=== PATIENT | male | born 1930 | race Caucasian/White ===

== ENCOUNTER 2016-09-07 05:41 | Outpatient (CLI) | payer MEDICARE ==
[~2016-09-07] VITALS: Ht 172.7 cm; Wt 93.0 kg
[~2016-09-07 05:41] MED LIST: ACHD5005 PO; AMLO1CAP31 PO; AMLO5TAB2 PO; ASCO1TAB17 PO; BETA1TAB15 PO; CALC-656 PO; CALC-706 PO; CHOL200049 PO; CYAN500T2 PO; DEXT1TAB3 PO; DOXA4TAB2 PO; HYDR-757 PO; IPRA3AMP11 INH; LEVO500T69 PO; LISI-556 PO; MELA300T PO; NAPR550T PO; OMEG1CAP74 PO; OMEP-10 PO; OXYC-12 PO; PRD20T PO; TRAM50TA2 PO
[2016-09-07] MEDS ORDERED: FLUT1DIS26 IH (10:48)
[2016-09-07] MEDS ORDERED: MELA1TAB15 PO (10:48)
[2016-09-07] MEDS ORDERED: OXYC-201 PO (10:48)
== END 2016-09-07 10:50 ==
LOC: PREOP 05:41
PROVIDERS: ATTEND Surgery Pediatric Surgery
DX: Z01.818 Encounter for other preprocedural examination (principal); K21.9 Gastro-esophageal reflux disease without esophagitis

== ENCOUNTER 2016-09-09 11:01 | Day surgery (SDC) | payer MEDICARE ==
[~2016-09-09] VITALS: Ht 172.7 cm; Wt 93.0 kg
[~2016-09-09 11:01] MED LIST changes: +FLUT1DIS26 IH; +MELA1TAB15 PO; +OXYC-201 PO
[2016-09-09] MEDS ORDERED: NS IV 500 ML 500 ML ONE (11:08)
[2016-09-09] MEDS ORDERED: LIDOCAINE JELLY 2% (XYLOCAINE) 5 ML TUBE ONE (11:24)
[2016-09-09] MEDS ORDERED: fentaNYL INJECTION 100 MCG/2 ML AMP ONE (11:25)
[2016-09-09] MEDS ORDERED: MIDAZOLAM 2 MG/2 ML (VERSED) VIAL ONE ×4 (11:25)
[2016-09-09] MEDS ORDERED: HURRICAINE EXT TUBE (BENZOCAINE) ONE (11:25)
[2016-09-09] MEDS ORDERED: MIDAZOLAM 2 MG/2 ML (VERSED) VIAL INJ ONE (11:25)
[2016-09-09 11:38] VITALS: BP 139/87
--- NOTE | 2016-09-09 11:44 | Conscious Sedation/ASA ---
Conscious Sedation Pre-Proced Time Reviewed: 11:40 ASA Class: 2 Airway Mallampati Classification: ([place] appropriate class) I. II. III, IV Lungs Heart ASA score ASA 1: a normal healthy patient ASA 2: a patient with a mild systemic disease (mid diabetes, controlled hypertension, obesity ASA 3: a patient with a severe systemic disease that limits activity (angina , COPD, prior Myocardial infarction) ASA 4: a patient with an incapacitating disease that is a constant threat to life (CHF, renal failure) ASA 5: a moribund patient not expected to survive 24 hrs. (ruptured aneurysm) ASA 6: a declared brain patient whose organs are being harvested. For emergent operations, add the letter E after the classification Grade 2 Sedation Plan: Analgesia, Amnesia, Plan communicated to team members, Discussed options with patient/fam, Discussed risks with patient/fam Note The patient is an appropriate candidate to undergo the planned procedure, sedation, and anesthesia. The patient immediately re-assessed prior to indication. NUSRAT DUGAN MD Sep 09, 2016 11:44 am
[2016-09-09] MEDS ORDERED: HYDROcodone/APAP 5 MG/325 MG (LORTAB) TAB PO PRN (11:45)
[2016-09-09] MEDS ORDERED: LIDOCAINE JELLY 2% (XYLOCAINE) 5 ML TUBE MM PRN (11:45)
[2016-09-09] MEDS ORDERED: ACETAMINOPHEN 325 MG TABLET/CAPLET (TYLENOL) PO PRN (11:45)
[2016-09-09] MEDS ORDERED: morphine INJ 10 MG/ML 1ML (SYR OR VIAL) IV PRN (11:45)
[2016-09-09] MEDS ORDERED: ONDANSETRON 4 MG/2 ML (SDV) Z0FRAN IV PRN (11:45)
[2016-09-09] MEDS ORDERED: FLUMAZENIL (ROMAZICON) 0.1 MG/ML 5 ML VIAL INJ PRN (11:45)
[2016-09-09] MEDS ORDERED: HURRICAINE EXT TUBE (BENZOCAINE) XX PRN (11:45)
[2016-09-09] MEDS ORDERED: NALOXONE 0.4 MG/ML 1 ML (NARCAN) VIAL IVP PRN (11:45)
--- NOTE | 2016-09-09 11:45 | Progress Note-Pre Operative ---
Pre-Operative Progress Note H&P Reviewed The H&P was reviewed, patient examined and no changes noted. Date H&P Reviewed: Sep 09, 2016 Time H&P Reviewed: 11:40 Pre-Operative Diagnosis: GERD NUSRAT DUGAN MD Sep 09, 2016 11:45 am
[2016-09-09] MEDS: fentaNYL INJECTION 100 MCG/2 ML AMP IVP PRN ×2 (11:47→11:49)
[2016-09-09] MEDS: MIDAZOLAM 2 MG/2 ML (VERSED) VIAL IVP PRN ×2 (11:48→11:56)
--- NOTE | 2016-09-09 12:10 | Progress Note-Post Operative ---
Post-Operative Progess Note Pre-Operative Diagnosis GERD Post-Operative Diagnosis reflux esophagitis(class B-C), small HH(2cm), mild gastritis. Post-Op Procedure Note Date of Procedure: Sep 09, 2016 Name of Procedure: EGD with bx. Anesthesia Type CS Estimated blood loss (mL): minimal Specimen(s) collected GE jxn. antrum NUSRAT DUGAN MD Sep 09, 2016 12:10 pm
[2016-09-09] MEDS ORDERED: PANT40TA2 PO (12:11)
--- NOTE | 2016-09-09 12:12 | Discharge Inst-Surgical ---
D/C Lap Instructions-KIDO New, Converted, or Re-Newed RX: RX on Chart Follow Up PRN Activity as tolerated High Fiber Diet 25g or more per day Avoid Alcohol, Caffeine, Spicy [place] and Acid foods. Drink 64 fluid oz or more of fluids per day. Symptoms to Report: Fever over 101 degree F, Nausea/Vomiting If any problems/questions: Contact your physician or go to Emergency Room NUSRAT DUGAN MD Sep 09, 2016 12:12 pm
[2016-09-09 12:35] VITALS: BP 142/86
[2016-09-09 13:05] VITALS: BP 139/89
[2016-09-09 13:19] VITALS: BP 139/89
--- NOTE | 2016-09-09 13:34 | OPERATIVE REPORT ---
PROCEDURE PHYSICIAN: NUSRAT DUGAN DATE OF PROCEDURE: 09/09/2016 ATTENDING PHYSICIAN: Dr. Oriana Napier PREOPERATIVE DIAGNOSIS: Gastroesophageal reflux disease. POSTOPERATIVE DIAGNOSES: 1. Reflux esophagitis between class B and C. 2. Small hiatal hernia, approximately 2 cm in size. 3. Mild gastritis. PROCEDURE: EGD with biopsies. SURGEON: Dr. Dugan. ANESTHESIA: Conscious sedation. ESTIMATED BLOOD LOSS: Minimal. FINDINGS: 1. Reflux esophagitis between class B and C. 2. Small hiatal hernia, approximately 2 cm in size. 3. There was moderate severity gastritis. 4. No ulcers or any neoplasms. 5. The pylorus and duodenum appeared normal. DISPOSITION: The patient tolerated the procedure well. BRIEF HISTORY: Mr. Andrez Young is an 86-year-old male referred over to us for increasing reflux and regurgitation. He has had issues of heartburn for many years. However, this has gradually become worse. He has taken [id number] Prilosec, which initially helped however, became less effective over time. He also has had some issues with nausea and vomiting as well. He reports that he does drink 2 to 3 drinks per night and does take in greasy, fried, spicy as well as acidic foods; however not on a daily basis. PROCEDURE: The patient was brought to the endoscopy suite, laid in the left lateral decubitus position with the head slightly elevated. After adequate IV pain and sedative medications and conscious sedation anesthesia, the mouthpiece was applied. The endoscope was then placed in the mouth, visualizing the pharynx and hypopharyngeal region. Vocal cords, epiglottis and vallecula identified and appeared to be normal. The endoscope was then gently intubated the esophageal opening and the esophagus insufflated. The endoscope was then advanced through the first, second, and 3rd portions of the esophagus. At the level of the GE junction, a reflux esophagitis was identified and significant and classified between class B and C. There were no ulcers or strictures in this region. A biopsy was taken using forceps with visualization of good hemostasis. The endoscope was then advanced into the stomach and endoscope retroflexed visualizing a hiatal hernia which was a small hiatal hernia, approximately 2 cm in size. Mild gastritis was also noted of the stomach. There were no formal ulcers or any neoplasms. There were multiple very small gastric polyps, most likely indicating hyper-acidemia. A biopsy was taken of the stomach antrum, with forceps with visualization of good hemostasis. The endoscope was then advanced through the pylorus and first and second portions of duodenum which appeared normal. The endoscope was slowly withdrawn while taking a second look and suctioning of residual air with no additional findings. The patient tolerated the procedure well. We feel that his reflux type symptoms are most likely due to lifestyle and he needs to proceed with the necessary lifestyle and diet accommodation including smaller, more frequent meals, avoidance of eating at night, as well as head elevation while lying supine. He also needs to moderate alcohol consumption as well as caffeinated beverages. It appears that the Prilosec is ineffective and we will switch him over to Protonix 40 mg daily, again with the necessary lifestyle changes. Job ID: [id number] Dictated Date: 09/09/2016 12:10:32 Engraver [employer] Date: 09/09/2016 13:26:47 / amaris
== END 2016-09-09 13:10 ==
LOC: SDC 11:01
PROVIDERS: ATTEND Surgery Pediatric Surgery
DX: K21.0 Gastro-esophageal reflux disease with esophagitis (principal); K44.9 Diaphragmatic hernia without obstruction or gangrene; K29.70 Gastritis, unspecified, without bleeding

== ENCOUNTER 2016-09-21 08:58 | Outpatient (RCR) | payer MEDICARE ==
[~2016-09-21 08:58] MED LIST changes: +PANT40TA2 PO
== END 2016-09-22 | disposition home or self-care (01) ==
PROVIDERS: ATTEND Orthopaedic Surgery
DX: M54.5 Low back pain (principal)

== ENCOUNTER → 2016-09-28 | Outpatient (CLI) | payer MEDICARE ==
[~2016-09-28] MED LIST changes: +AZIT250T PO
--- OUTSIDE RECORDS SUMMARY | 2016-09-28 08:30 | XMS REPORT | Continuity of Care Document ---
Author Author [facility] Organization [facility] Address Unknown Phone Unavailable Care Team Providers Care Art Appraiser Name Role Phone ELIJAH LA MD PCP Insurance Providers Payer Name Policy Number Subscriber Name Relationship Wps Medicare [id number] Rehana Young Self / Same As Patient Blue Cross [facility] Supp [id number] Rehana Young Self / Same As Patient Advance Directives Directive Response Recorded Date/Time Advance Directives Yes 09/09/16 11:41am Health Care Power of Sticker Hand No 09/09/16 11:41am Organ Donor Yes 09/09/16 11:41am Resuscitation Status Full Code 09/09/16 11:41am Problems No problem information available. Medications Current Home Medications Medication Dose Units Route Directions Days/Qty Instructions Start Date Doxazosin Mesylate 4 Mg 4 Mg Oral Bedtime 04/27/11 Albuterol/Ipratropium 3 Ml 1 Inh Inhalation Twice A Day MAY TAKE UP TO FOUR TIMES A DAY 04/27/11 Amlodipine Besylate (Norvasc 5 Mg) 5 Mg 5 Mg Oral Daily 11/07/14 [place]-3/Dha/Epa/Fish Oil 1,000 Mg 1,000 Mg Oral Daily 11/07/14 Calcium Carbonate/Vitamin D3 1 Each 1 Each Oral Daily 11/07/14 Calcium Carbonate/Mag Oxide/Zn 1 Each 1 Each Oral Daily 11/07/14 Cholecalciferol (Vitamin D3) 2,000 Unit 2,000 Unit Oral Daily Cyanocobalamin 500 Mcg 500 Mcg Oral Daily 11/07/14 Omeprazole 20 Mg 20 Mg Oral Twice A Day as needed for Heartburn Vit A/Vit C/Vit E/Zinc/Copper 1 Each 1 Tab Oral Twice A Day 11/07/14 Lisinopril 5 Mg 5 Mg Oral Daily 11/13/14 Tramadol Hcl 50 Mg 50 Mg Oral Four Times Daily 30 05/19/16 Melatonin/Pyridoxine 1 Each 5 Mg Oral Bedtime 09/07/16 Oxycodone Hcl/Acetaminophen 1 Each 1 Each Oral Every 4HRS as needed for Pain 09/07/16 Fluticasone/Salmeterol 1 Each 1 Each Inhalation Twice A Day 09/07/16 Pantoprazole Sodium 40 Mg 40 Mg Oral Daily 90 09/09/16 Past Home Medications Medication Directions Ordered Status Amlodipine/Benazepril Hcl 1 Each Capsule, 1 Tab Oral Daily 04/27/11 Discontinued Acetaminophen/Hydrocodone Bitart 1 Each Tablet, 1 - 2 Each Oral Every 6 Hours as needed 04/30/12 Discontinued Prednisone 20 Mg Tab, 20 Mg Oral Daily 04/30/12 Discontinued Hydrocodone Bit/Acetaminophen 1 Each Tablet, 1 Ea Oral Every 6 Hours as needed for Mild Pain 11/06/13 Discontinued Dextromethorphan Hbr/Chlor-Mal 1 Tab Tablet, 1 Tab Oral Daily 11/07/14 Discontinued Ascorbic Acid/Bioflavonoids 1 Tab Tablet, 500 Mg Oral Daily 11/07/14 Discontinued Melatonin 300 Mcg Tablet, 250 Mcg Oral Bedtime 11/13/14 Discontinued Oxycodone Hcl/Acetaminophen 1 Each Tablet, 1-2 Each Oral Every 4HRS 11/13/14 Discontinued Naproxen Sodium (Naproxen) 550 Mg Tablet, 550 Mg Oral Twice A Day 05/19/16 Discontinued Social History Social History Problem Response Recorded Date/Time Alcohol Use Regular Use 11/13/2014 8:50am Recreational Drug Use No 11/13/2014 8:50am Recent Foreign Travel No 09/09/2016 11:40am Smoking Status Former Smoker 09/09/2016 11:41am Recent Hopitalizations No 09/09/2016 11:41am Query Response Start Date Stop Date Smoking Status Former Smoker Hospital Discharge Instructions Patient Instructions Physician Instructions New, Converted, or Re-Newed RX: RX on Chart Follow Up PRN Activity as tolerated High Fiber Diet 25g or more per day Avoid Alcohol, Caffeine, Spicy [place] and Acid foods. Drink 64 fluid oz or more of fluids per day. Symptoms to Report: Fever over 101 degree F, Nausea/Vomiting If any problems/questions: Contact your physician or go to Emergency Room Plan of Care Discharge Date 09/09/16 1:10pm Instructions/Education Provided EGD-ESOPHAGOGASTRODUODENOSCOPY Prescriptions See Medication Section Functional Status No functional status results. Allergies, Adverse Reactions, Alerts Allergen Type Severity Reaction Status Last Updated Sulfa (Sulfonamide Antibiotics) ([id number]) Allergy Unknown Active Immunizations No immunization records. Vital Signs Acute Vital Signs Vital Response Date/Time Temperature (Fahrenheit) 97.1 degrees F (97.6 - 99.5) 09/09/2016 1:19pm Temperature (Calculated Celsius) 36.27316 degrees C (36.4 - 37.5) 09/09/2016 1:19pm Temperature Source Tympanic 09/09/2016 1:19pm Pulse Rate (adult) 76 bpm (60 - 90) 09/09/2016 1:19pm Respiratory Rate 18 bpm (12 - 24) 09/09/2016 1:19pm O2 Sat by Pulse Oximetry 91 % (88 - 100) 09/09/2016 1:19pm Blood Pressure 139/89 mm Hg 09/09/2016 1:19pm Blood Pressure Mean 104 mm Hg 09/09/2016 11:38am Pain Numeric Pain Scale 3 09/09/2016 1:19pm Pain Intensity 0 09/09/2016 1:05pm Height (Feet) 5 feet 09/09/2016 11:42am Height (Inches) 8.00 inches 09/09/2016 11:42am Height (Calculated Centimeters) 172.818339 cm 09/09/2016 11:42am Weight (Pounds) 205 pounds 09/09/2016 11:42am Weight (Ounces) 0.0 oz 09/09/2016 11:42am Weight (Calculated Grams) 63876.44 gm 09/09/2016 11:42am Weight (Calculated Kilograms) 92.757434 kilograms 09/09/2016 11:42am Calculated BMI 31.2 09/09/2016 11:42am Results No known relevant diagnostic tests, laboratory data and/or discharge summary. Procedures Procedure Status Date Provider(s) Esophagogastroduodenoscopy (EGD) with dilation Completed 09/09/16 NUSRAT DUGAN MD Encounters Encounter Location Arrival/Admit Date Discharge/Depart Date Attending Provider Departed Surgical Day [facility] 09/09/16 11:01am 09/09/16 1:10pm NUSRAT DUGAN MD Registered Recurring [facility] 09/08/16 10:53am KARLEE JOHNSON DO Departed Clinic [facility] 09/07/16 5:41am 09/07/16 10: 50am NUSRAT DUGAN MD
--- NOTE | 2016-09-28 12:50 | Diagnostic Imaging Report ---
PROCEDURE: CT pelvis without contrast. TECHNIQUE: Multiple contiguous axial images were obtained through the pelvis without the use of intravenous contrast. Sagittal and coronal reformations were performed. INDICATION: Right hip pain for a week. Pubic rami fractures. FINDINGS: There are fractures in the inferior and superior pubic rami with minimal displacement seen. The fracture in the superior pubic rami however extends to the anterior acetabulum and into the right hip joint. There is a tiny bone fragment displaced into the joint measuring 6 mm in size. The fracture results in loss of a portion of the articular surface measuring 6 mm in the anterior-posterior dimension without significant irregularity or loss of congruity of the joint surface. There is a hematoma along the obturator internus area secondary to the fracture with associated early heterotopic ossification. Both fractures demonstrate element of comminution with small fracture fragments at the fracture site seen. The right femoral head and neck are intact. The left pubic rami and femoral head and neck are intact. The SI joints demonstrate degenerative changes. There are bilateral insufficiency fractures in the sacral ala seen. Degenerative changes of the lower lumbar spine visualized portions seen with a grade 1 spondylosis of L5 over S1 and bilateral L5 pars defects. IMPRESSION: 1. There is an intra-articular fracture involving the right hip in the anterior acetabulum extending from the medial aspect of the right superior pubic ramus fracture. There is a 6 mm bone fragment seen within the right hip joint. 2. There is also a nondisplaced minimally comminuted inferior right pubic ramus fracture. 3. Bilateral sacral ala insufficiency fractures. 4. 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 Report was faxed to [facility] office of Dr. Maher by marilyn at 12:49 pm. Dictated by: Dictated on workstation # [id number]
== END ==
LOC: RAD 08:24
PROVIDERS: ATTEND Orthopaedic Surgery
DX: S32.511A Fracture of superior rim of right pubis, initial encounter for closed fracture (principal); S32.10XA Unspecified fracture of sacrum, initial encounter for closed fracture; M43.07 Spondylolysis, lumbosacral region; X58.XXXA Exposure to other specified factors, initial encounter; Y99.8 Other external cause status
CPT/HCPCS: 72192

== ENCOUNTER 2016-10-23 12:52 | Emergency (ER) | payer MEDICARE ==
[~2016-10-23] VITALS: Ht 175.3 cm; Wt 90.7 kg
[~2016-10-23 12:52] MED LIST changes: -AZIT250T PO
--- OUTSIDE RECORDS SUMMARY | 2016-10-23 12:59 | XMS REPORT | Continuity of Care Document ---
Author Author [facility] Organization [facility] Address Unknown Phone Unavailable Care Team Providers Care Refrigerator Mover Name Role Phone ELIJAH LA MD PCP Insurance Providers Payer Name Policy Number Subscriber Name Relationship Wps Medicare [id number] Rehana Young Self / Same As Patient Blue Cross [facility] Supp [id number] Rehana Young Self / Same As Patient Advance Directives Directive Response Recorded Date/Time Advance Directives Yes 09/09/16 11:41am Health Care Power of Brim Edge Trimmer No 09/09/16 11:41am Organ Donor Yes 09/09/16 [...] 5 Mg 5 Mg Oral Daily 11/07/14 [place]-3/Dha/Epa/Fish Oil 1,000 Mg 1,000 Mg Oral Daily [...] more per day Avoid Alcohol, Caffeine, Spicy [place] and Acid foods. Drink 64 fluid oz [...] Reaction Status Last Updated Sulfa (Sulfonamide Antibiotics) ([id number]) Allergy Unknown Active Immunizations No immunization records. Vital Signs Acute Vital Signs Vital Response Date/Time Temperature (Fahrenheit) 97.1 degrees F (97.6 - 99.5) 09/09/2016 1:19pm Temperature (Calculated Celsius) 36.77351 degrees C (36.4 - 37.5) 09/09/2016 1:19pm [...] 8.00 inches 09/09/2016 11:42am Height (Calculated Centimeters) 172.457272 cm 09/09/2016 11:42am Weight (Pounds) 205 pounds 09/09/2016 11:42am Weight (Ounces) 0.0 oz 09/09/2016 11:42am Weight (Calculated Grams) 35836.44 gm 09/09/2016 11:42am Weight (Calculated Kilograms) 92.085300 kilograms 09/09/2016 11:42am Calculated BMI 31.2 09/09/2016 11:42am Results No known relevant diagnostic tests, laboratory data and/or discharge summary. Procedures Procedure Status Date Provider(s) Esophagogastroduodenoscopy (EGD) with dilation Completed 09/09/16 NUSRAT DUGAN MD Encounters Encounter Location Arrival/Admit Date Discharge/Depart Date Attending Provider Departed [facility] Day [facility] 09/09/16 11:01am 09/09/16 1:10pm NUSRAT DUGAN MD Registered Recurring [facility] 09/08/16 10:53am KARLEE JOHNSON DO Departed Clinic [facility] 09/07/16 5:41am 09/07/16 10: 50am NUSRAT DUGAN MD
--- NOTE | 2016-10-23 13:20 | ED Abdominal Pain ---
General Stated Complaint: R SIDE SHOULDER PAIN Source of Information: Patient, Family Exam Limitations: No Limitations History of Present Illness Time Seen By Provider: 13:24 Initial Comments This 86-year-old male presents with a history of shoulder knee hip and low back pain. The patient has had multiple fractures without falls in the past. In addition the patient was noted to have a fever here in the emergency department. He's had no productive cough, shortness of breath, nausea vomiting diarrhea, dysuria or frequency, hematuria, red or swollen extremity, headache or stiff neck. Allergies and Home Medications Allergies Coded Allergies: Sulfa (Sulfonamide Antibiotics) (Verified Allergy, Unknown, 09/07/16) Home Medications Albuterol/Ipratropium 3 Ml Nebu 1 INH INH BID (Reported) MAY TAKE UP TO FOUR TIMES A DAY Amlodipine Besylate 5 Mg Tablet 5 MG PO DAILY (Reported) Calcium Carbonate/Mag Oxide/Zn 1 Each Tablet 1 EACH PO DAILY (Reported) Calcium Carbonate/Vitamin D3 1 Each Tablet 1 EACH PO DAILY (Reported) Cholecalciferol (Vitamin D3) 2,000 Unit Tablet 2,000 UNIT PO DAILY (Reported) Cyanocobalamin 500 Mcg Tablet 500 MCG PO DAILY (Reported) Doxazosin Mesylate 4 Mg Tablet 4 MG PO HS (Reported) Fluticasone/Salmeterol 1 Each Blst.w.dev 1 EACH IH BID (Reported) Lisinopril 5 Mg Tablet 5 MG PO DAILY (Reported) Melatonin/Pyridoxine 1 Each Tablet 5 MG PO HS (Reported) [place]-3/Dha/Epa/Fish Oil 1,000 Mg Capsule 1,000 MG PO DAILY (Reported) Omeprazole 20 Mg Capsule.dr 20 MG PO BID PRN PRN HEARTBURN (Reported) Oxycodone HCl/Acetaminophen 1 Each Tablet 1 EACH PO Q4H PRN PRN PAIN (Reported) Pantoprazole Sodium 40 Mg Tablet.dr #90 40 MG PO DAILY Prescribed by: NUSRAT DUGAN on 09/09/16 1211 Tramadol HCl 50 Mg Tablet #30 50 MG PO QID Prescribed by: BRENT GARCIA on 05/19/16 1117 Vit A/Vit C/Vit E/Zinc/Copper 1 Each Tablet 1 TAB PO BID (Reported) Review of Systems Constitutional: No chills, fever EENTM: No Blurred Vision, No Ear Pain Respiratory: Denies Cough, Denies Shortness of Air Cardiovascular: Denies Chest Pain Gastrointestinal: Denies Abdominal Pain, Denies Diarrhea, Denies Vomiting Genitourinary: Denies Burning, Denies Frequency Musculoskeletal: back pain joint pain Skin: No rash Psychiatric/Neurological: No Symptoms Reported Endocrine: No Symptoms Reported Hematologic/Lymphatic: No Symptoms Reported Past Srwuqyh-Cxutlu-Hhnrrj Hx Patient Social History Recent Foreign Travel: No Contact w/Someone Who Travel: No Recent Hopitalizations: No Immunizations Up To Date Date of Pneumonia Vaccine: Aug 21, 2011 Date of Influenza Vaccine: May 21, 2016 Seasonal Allergies Seasonal Allergies: No Surgeries HX Surgeries: Yes (RIGHT KNEE SCOPE, BILAT ING HERNIA, umb hernia, RIGHT SHOULDER X2, ) Respiratory Hx Respiratory Disorders: Yes Respiratory Disorders: Sleep Apnea, COPD Cardiovascular Hx Cardiac Disorders: Yes Cardiac Disorders: Hypertension Neurological Hx Neurological Disorders: No Reproductive System Hx Reproductive Disorders: No Genitourinary Hx Genitourinary Disorders: Yes (FREQUENCY, PROSTATE CA) Gastrointestinal Hx Gastrointestinal Disorders: Yes Gastrointestinal Disorders: Gastroesophageal Reflux Musculoskeletal Hx Musculoskeletal 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) Musculoskeletal Disorders: Arthritis Endocrine Hx Endocrine Disorders: No HEENT HX ENT Disorders: Yes (GLASSES) 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 Hearing Impairment: Hard of Hearing Cancer Hx Cancer: Yes Cancer: Prostate Psychosocial Hx Psychiatric Problems: No Integumentary HX Skin/Integumentary Disorder: No Blood Transfusions Hx Blood Disorders: No Reviewed Nursing Assessment Reviewed/Agree w Nursing PMH: Yes Physical Exam Vital Signs VS - Last 72 Hours, by Label 10/23/16 10/23/16 13:23 13:38 Temp 100.0 100.0 Pulse 95 B/P 136/80 Pulse Ox 94 O2 Delivery Room Air Capillary Refill : General Appearance: WD/WN mild distress HEENT: normal ENT inspection Neck: non-tender full range of motion Respiratory: chest non-tender lungs clear Cardiovascular: regular rate, rhythm Gastrointestinal: normal bowel sounds non tender soft Extremities: other (there is limited range of motion in most of the patient's joints due to his osteoporosis and degenerative arthritis.) Back: vertebral tenderness (over the lumbar region) Skin: normal color warm/dry Progress/Results/Core Measures Results/Orders Lab Results Laboratory Tests Test 10/23/16 13:55 Range/Units Alanine Aminotransferase (ALT/SGPT) 12 0-55 U/L Albumin 3.7 3.2-4.5 G/DL Alkaline Phosphatase 83 40-136 U/L Anion Gap 8 5-14 MMOL/L Aspartate Amino Transf (AST/SGOT) 10 5-34 U/L BUN/Creatinine Ratio 17 Basophils # (Auto) 0.0 0.0-0.1 10^3/uL Basophils (%) (Auto) 0 0-10 % Blood Urea Nitrogen 15 7-18 MG/DL Calcium Level 8.8 8.5-10.1 MG/DL Carbon Dioxide Level 24 21-32 MMOL/L Chloride Level 106 98-107 MMOL/L Creatinine 0.86 0.60-1.30 MG/DL Eosinophils # (Auto) 0.1 0.0-0.3 10^3/uL Eosinophils (%) (Auto) 1 0-10 % Estimat Glomerular Filtration Rate > 60 Glucose Level 103 70-105 MG/DL Hematocrit 39 L 40-54 % Hemoglobin 13.1 L 13.3-17.7 G/DL Lactic Acid Level 0.73 0.50-2.00 MMOL/L Lymphocytes # (Auto) 1.8 1.0-4.0 X 10^3 Lymphocytes (%) (Auto) 19 12-44 % Mean Corpuscular Hemoglobin 29 25-34 PG Mean Corpuscular Hemoglobin Concent 34 32-36 G/DL Mean Corpuscular Volume 85 80-99 FL Mean Platelet Volume 9.1 7.4-10.4 FL Monocytes # (Auto) 1.1 H 0.0-1.0 X 10^3 Monocytes (%) (Auto) 11 0-12 % Neutrophils # (Auto) 6.4 1.8-7.8 X 10^3 Neutrophils (%) (Auto) 68 42-75 % Platelet Count 217 130-400 10^3/uL Potassium Level 4.0 3.6-5.0 MMOL/L Red Blood Count 4.53 4.35-5.85 10^6/uL Red Cell Distribution Width 16.2 H 10.0-14.5 % Sodium Level 138 135-145 MMOL/L Total Bilirubin 0.5 0.1-1.0 MG/DL Total Protein 6.2 L 6.4-8.2 G/DL Urine Bacteria NEGATIVE /HPF Urine Bilirubin NEGATIVE NEGATIVE Urine Casts NONE /LPF Urine Clarity CLEAR Urine Color YELLOW Urine Crystals NONE /LPF Urine Culture Indicated NO Urine Glucose (UA) NEGATIVE NEGATIVE Urine Ketones NEGATIVE NEGATIVE Urine Leukocyte Esterase NEGATIVE NEGATIVE Urine Mucus NEGATIVE /LPF Urine Nitrite NEGATIVE NEGATIVE Urine Protein NEGATIVE NEGATIVE Urine RBC 0-2 /HPF Urine RBC (Auto) 2+ H NEGATIVE Urine Specific [place] 1.020 1.016-1.022 Urine Squamous Epithelial Cells NONE /HPF Urine Urobilinogen NORMAL NORMAL MG/DL Urine WBC RARE /HPF Urine pH 6 5-9 White Blood Count 9.4 4.3-11.0 10^3/uL My Orders Orders-JASE NEWMAN MD Clavicle, Right (10/23/16 13:16) Shoulder, Right, 2 Views (10/23/16 13:16) Knee, 3 Views, Bilateral (10/23/16 13:16) Lumbar Spine - 2-3 Views (10/23/16 13:16) Pelvis (10/23/16 13:16) Fentanyl Injection (Sublimaze Injection (10/23/16 13:30) Chest Pa/Lat (2 View) (10/23/16 13:20) Blood Culture (10/23/16 13:20) Cbc With Automated Diff (10/23/16 13:20) Comprehensive Metabolic Panel (10/23/16 13:20) Ua Culture If Indicated (10/23/16 13:20) Lactic Acid Analyzer (10/23/16 13:20) Medications Given in ED Current Medications Medications Dose Ordered Sig/Chayo Route Start Time Stop Time Status Last Admin Dose Admin Fentanyl Citrate 100 mcg Q1H PRN IM 10/23/16 13:30 10/23/16 13:38 100 MCG Vital Signs/I&O Vital Sign - Last 12Hours 10/23/16 10/23/16 13:23 13:38 Temp 100.0 100.0 Pulse 95 B/P 136/80 Pulse Ox 94 O2 Delivery Room Air Progress Note : Time: 15:16 Progress Note Evaluation in the emergency department demonstrated marked degenerative changes in the patient's bones. There was evidence of questionable new fractures as well as healing old fractures. Marked osteoarthritis was present. In addition to the radiographs of the bones a chest x-ray demonstrated a small right lower lobe pneumonia. The remainder the patient's workup for his fever were unremarkable. Blood cultures were drawn. I discussed treatment options with the patient. He requested that an additional shot of fentanyl 50 g IM which had significantly helped his discomfort before he left. I gave him a prescription for hydrocodone for his joint pain. I gave him Zithromax for his pneumonia. I asked that he follow-up with his primary care physician Dr. La for his pneumonia within the next 2 days and with his orthopedic surgeon this week with the results of his radiographs for further evaluation and care. I advised the patient return to emergency department for any further problems or questions. Departure Impression Impression: Primary Impression: Pneumonia Qualified Code: J18.1 - Lobar pneumonia, unspecified organism Additional Impressions: Osteoarthritis (arthritis due to wear and tear of joints) Qualified Code: M17.0 - Bilateral primary osteoarthritis of knee Osteopenia Qualified Code: M85.811 - Other specified disorders of bone density and structure, right shoulder Disposition: HOME, SELF-CARE Condition: Improved Departure-Patient Inst. Decision time for Depature: 15:20 Referrals: ELIJAH LA MD (PCP/Family) Primary Care Physician Patient Instructions: Community-Acquired Pneumonia in Adults Add. Discharge Instructions: Zithromax as prescribed. Close follow-up with Dr. La early this week. Return if any problems or questions. Scripts Azithromycin (Zithromax)250 Mg [id number] Mg PO UD #6 TAB TAKE 2 TABLETS TODAY, THEN TAKE 1 TABLET DAILY FOR 4 MORE DAYS Prov:JASE NEWMAN MD 10/23/16 JASE NEWMAN MD Oct 23, 2016 13:20
[2016-10-23] MEDS: fentaNYL INJECTION 100 MCG/2 ML AMP IM PRN ×2 (13:38→15:22)
[2016-10-23 14:18] LABS: BASOPHILS % (AUTO) 0 % (0-10); EOSINOPHILS # (AUTO) 0.1 10^3/uL (0.0-0.3); EOSINOPHILS % (AUTO) 1 % (0-10); LYMPHOCYTES # (AUTO) 1.8 X 10^3 (1.0-4.0); LYMPHOCYTES % (AUTO) 19 % (12-44); MEAN CORPUSCULAR HEMOGLOBIN 29 PG (25-34); MEAN CORPUSCULAR HGB CONC 34 G/DL (32-36); MEAN CORPUSCULAR VOLUME 85 FL (80-99); MEAN PLATELET VOLUME 9.1 FL (7.4-10.4); MONOCYTES # (AUTO) 1.1 X 10^3 (0.0-1.0); MONOCYTES % (AUTO) 11 % (0-12); NEUTROPHILS # (AUTO) 6.4 X 10^3 (1.8-7.8); NEUTROPHILS % (AUTO) 68 % (42-75); PLATELET COUNT 217 10^3/uL (130-400); RED BLOOD COUNT 4.53 10^6/uL (4.35-5.85); RED CELL DISTRIBUTION WIDTH 16.2 % (10.0-14.5); WHITE BLOOD COUNT 9.4 10^3/uL (4.3-11.0)
[2016-10-23 14:19] LABS: BILIRUBIN,URINE NEGATIVE (NEGATIVE); KETONES,URINE NEGATIVE (NEGATIVE); LEUKOCYTE ESTERASE ,URINE NEGATIVE (NEGATIVE); NITRITE,URINE NEGATIVE (NEGATIVE); PH,URINE 6 (5-9); PROTEIN,URINE NEGATIVE (NEGATIVE); UROBILINOGEN,URINE NORMAL (NORMAL)
[2016-10-23 14:30] LABS: WBC,URINE RARE /HPF
--- NOTE | 2016-10-23 14:40 | Diagnostic Imaging Report ---
EXAMINATION: Pelvis, single view. COMPARISON: CT pelvis September 28, 2016. HISTORY: 86-year-old male, pelvic pain. FINDINGS: The bones appear demineralized. The hips are not obviously dislocated. There is no abnormal widening of the pubic symphysis or sacroiliac joints. There is a redemonstrated mildly displaced fracture of the right superior pubic ramus which is also present on comparison CT of September 28, 2016. There is also a redemonstrated mildly displaced fracture of the right inferior pubic ramus. These appear unchanged since comparison exam. There is a contour deformity along the left superior pubic ramus likely relating to sequela of prior fracture which is also unchanged. There is sclerosis along the left sacral ala and right sacral ala compatible with sacral insufficiency fractures which are also previously seen. There are degenerative changes of the visualized lumbar spine. There is no newly identified fracture. The hip joints are not significantly narrowed. IMPRESSION: 1. Redemonstrated mildly displaced fractures of the right superior and inferior pubic rami and bilateral sacroiliac fractures which may be insufficiency related. 2. Redemonstrated contour deformity of the left superior pubic ramus likely relating to sequela of prior fracture. 3. Bone demineralization without new fracture identified. Dictated by: Dictated on workstation # [id number]
[2016-10-23 14:41] LABS: ALANINE AMINOTRANSFERASE 12 U/L (0-55); ALBUMIN 3.7 G/DL (3.2-4.5); ANION GAP 8 MMOL/L (5-14); ASPARTATE AMINO TRANSFERASE 10 U/L (5-34); BILIRUBIN,TOTAL 0.5 MG/DL (0.1-1.0); BLOOD UREA NITROGEN 15 MG/DL (7-18); BUN/CREATININE RATIO 17; CALCIUM 8.8 MG/DL (8.5-10.1); CARBON DIOXIDE 24 MMOL/L (21-32); CHLORIDE 106 MMOL/L (98-107); CREATININE SERUM 0.86 MG/DL (0.60-1.30); GFR ESTIMATED > 60; GLUCOSE 103 MG/DL (70-105); SODIUM 138 MMOL/L (135-145); TOTAL PROTEIN 6.2 G/DL (6.4-8.2)
--- NOTE | 2016-10-23 14:41 | Diagnostic Imaging Report ---
EXAMINATION: Right shoulder INDICATION: Shoulder pain 2 views were obtained. There are no prior studies available for comparison. There is no fracture, dislocation or acute bony abnormality evident. There is an orthopedic fixation screw within the greater tuberosity of the humerus. There is also at least moderate degenerative disease of the glenohumeral joint and the acromioclavicular joints. The soft tissues are unremarkable IMPRESSION: There is no evidence for an acute bony abnormality. Dictated by: Dictated on workstation # [id number]
--- NOTE | 2016-10-23 14:48 | Diagnostic Imaging Report ---
EXAMINATION: Lumbar spine at 224h. INDICATION: Back pain AP and lateral views were obtained. The previous exam of 11/06/13 noted degenerative disc and bony disease throughout the lumbar spine. In the interval since the previous study there has been a mild loss of height of the right lateral half of the L1 vertebral body. I suspect this compression deformity is long-standing in nature. However if there is clinical concern regarding an acute injury, then MRI would be recommended for further evaluation. No other acute fracture or dislocation is identified. The degenerative disc and bony disease seen on the previous study does not appear to have progressed significantly. There is no sign of a paraspinal mass. There is mild symmetrical sclerosis of the sacral joints. As noted on the CT pelvis exam performed to 09/28/16 there is an intra-articular fracture involving the right hip joint. There does seem to be some healing calcification in this area. IMPRESSION: 1. A mild compression deformity of the lateral half of L1 of the right has developed in the interval since the previous study. This injury is more likely be chronic in nature than due to an acute abnormality. Even so, if further imaging is desired, then MRI would be recommended. 2. There is no acute bony abnormality noted otherwise. 3. The intra-articular fracture of the right hip seen previously is again evident. There is healing callus formation about the fracture site. Dictated by: Dictated on workstation # [id number]
--- NOTE | 2016-10-23 14:50 | Diagnostic Imaging Report ---
EXAMINATION: Right knee, 3 views. Left knee, 3 views. COMPARISON: None. INDICATION: 86-year-old male, bilateral knee pain. FINDINGS: Right knee. There is a lucency underlying the articulating surface of the medial tibial plateau the right knee which is concerning for a nondisplaced subchondral fracture. There is no identified right knee joint effusion. The bones appear demineralized. There is severe joint space loss of the medial compartment of the right knee. There is mild degenerative type patellar enthesopathy. Left knee. There is no identified knee joint effusion. There is no identified acute fracture or dislocation. There is mild degenerative type enthesophyte formation at the attachment site of the distal quadriceps tendon. There are vascular calcifications. The joint spaces of the left knee are not significantly narrowed. IMPRESSION: 1. Lucency in the subchondral bone of the right medial tibial plateau concerning for a nondisplaced subchondral fracture. 2. Severe medial compartment osteoarthritis of the right knee. 3. No identified acute bony abnormality of the left knee. Dictated by: Dictated on workstation # [id number]
--- NOTE | 2016-10-23 14:52 | Diagnostic Imaging Report ---
EXAMINATION: PA and lateral Chest obtained at 220h. INDICATION: Chest pain Heart size is within normal limits and stable when compared to 11/07/14. The scar formation near the left hemidiaphragm seen previously is again evident and no different. A new thin band of increased density has developed in the left lung base since the prior exam. This too may secondary to scar fracture. In addition there is a patchy density in the right lung base near the diaphragm. This could be secondary to mild pneumonia/atelectasis. There does not appear to be a significant pleural effusion. The upper lungs are clear. The mediastinum is not widened. The osseous structures are intact. The orthopedic fixation screw overlying the right humeral head seen previous is again evident. IMPRESSION: 1. The findings are suspicious for mild pneumonia/atelectasis involving the right lung base. Clinical follow up is recommended. 2. There is no acute cardiopulmonary abnormality noted otherwise. Dictated by: Dictated on workstation # [id number]
--- NOTE | 2016-10-23 14:53 | Diagnostic Imaging Report ---
EXAMINATION: Right clavicle INDICATION: Pain 2 views were obtained. There is no fracture, dislocation or acute bony abnormality evident. There is moderate degenerative disease involving the acromioclavicular joint. The soft tissues are unremarkable. IMPRESSION: There is no evidence for an acute bony abnormality. Dictated by: Dictated on workstation # [id number]
[2016-10-23] MEDS ORDERED: fentaNYL INJECTION 100 MCG/2 ML AMP IM ONE (15:15)
[2016-10-23] MEDS ORDERED: AZIT250T PO (15:22)
[2016-10-23 15:31] VITALS: BP 136/80
== END 2016-10-23 15:31 | disposition home or self-care (01) ==
LOC: EDUNIT# 12:52 → ER 12:54
DX: J18.9 Pneumonia, unspecified organism (principal); M17.11 Unilateral primary osteoarthritis, right knee; S32.010A Wedge compression fracture of first lumbar vertebra, initial encounter for closed fracture; S32.511D Fracture of superior rim of right pubis, subsequent encounter for fracture with routine healing; S72.491D Other fracture of lower end of right femur, subsequent encounter for closed fracture with routine healing; M85.89 Other specified disorders of bone density and structure, multiple sites; I10 Essential (primary) hypertension; J44.9 Chronic obstructive pulmonary disease, unspecified; Z79.899 Other long term (current) drug therapy; W19.XXXA Unspecified fall, initial encounter; R29.6 Repeated falls; Y99.8 Other external cause status
CPT/HCPCS: 36415; 71020; 72100; 72170; 73000; 73030; 80053; 81000; 83605; 85025; 87040; 96372; 99284

== ENCOUNTER → 2016-11-01 | Outpatient (CLI) | payer MEDICARE ==
[~2016-11-01] MED LIST changes: +AZIT250T PO
--- OUTSIDE RECORDS SUMMARY | 2016-11-01 13:59 | XMS REPORT | Continuity of Care Document ---
Author Author [facility] Organization [facility] Address Unknown Phone Unavailable Care Team Providers Care Brush Finisher Name Role Phone ELIJAH LA MD PCP Insurance Providers Payer Name Policy Number Subscriber Name Relationship [employer] [id number] Rehana Young Self / Same As Patient [employer] [facility] Supp [id number] Rehana Young Self / Same As Patient Advance Directives Directive Response Recorded Date/Time Advance Directives Yes 09/09/16 11:41am Health Care Power of Rn Cardiology No 09/09/16 11:41am Organ Donor Yes 09/09/16 [...] 5 Mg 5 Mg Oral Daily 11/07/14 [place]-3/Dha/Epa/Fish Oil 1,000 Mg 1,000 Mg Oral Daily [...] more per day Avoid Alcohol, Caffeine, Spicy [place] and Acid foods. Drink 64 fluid oz [...] Reaction Status Last Updated Sulfa (Sulfonamide Antibiotics) ([id number]) Allergy Unknown Active Immunizations No immunization records. Vital Signs Acute Vital Signs Vital Response Date/Time Temperature (Fahrenheit) 97.1 degrees F (97.6 - 99.5) 09/09/2016 1:19pm Temperature (Calculated Celsius) 36.14198 degrees C (36.4 - 37.5) 09/09/2016 1:19pm [...] 8.00 inches 09/09/2016 11:42am Height (Calculated Centimeters) 172.552887 cm 09/09/2016 11:42am Weight (Pounds) 205 pounds 09/09/2016 11:42am Weight (Ounces) 0.0 oz 09/09/2016 11:42am Weight (Calculated Grams) 16022.44 gm 09/09/2016 11:42am Weight (Calculated Kilograms) 92.222805 kilograms 09/09/2016 11:42am Calculated BMI 31.2 09/09/2016 11:42am Results No known relevant diagnostic tests, laboratory data and/or discharge summary. Procedures Procedure Status Date Provider(s) Esophagogastroduodenoscopy (EGD) with dilation Completed 09/09/16 NUSRAT DUGAN MD Encounters Encounter Location Arrival/Admit Date Discharge/Depart Date Attending Provider Departed [facility] 09/09/16 11:01am 09/09/16 1:10pm NUSRAT DUGAN MD Registered Recurring [facility] 09/08/16 10:53am KARLEE JOHNSON DO Departed Clinic [facility] 09/07/16 5:41am 09/07/16 10: 50am NUSRAT DUGAN MD
--- NOTE | 2016-11-01 16:38 | Diagnostic Imaging Report ---
INDICATION: Followup increased density in the right lung base. COMPARISON: 10/23/2016. FINDINGS: PA and lateral views show obstructive interstitial lung disease. There continues to be a horizontal linear density in the left lung base and a vertical linear density in the right lung base. These are unchanged. These likely represent some parenchymal scarring as opposed to a consolidated infiltrate. The upper lungs are clear. The heart is not enlarged. No evidence of pulmonary edema. No pleural effusions. IMPRESSION: Some linear densities remain in the lung bases bilaterally felt to most likely represent pleural scarring. Obstructive interstitial lung disease is present. Dictated by: Dictated on workstation # [id number]
== END ==
LOC: RAD 13:54
PROVIDERS: ATTEND Nurse Practitioner
DX: J18.9 Pneumonia, unspecified organism (principal)
CPT/HCPCS: 71020

== ENCOUNTER → 2017-06-12 | Outpatient (CLI) | payer MEDICARE ==
[~2017-06-12] MED LIST changes: +CEPH500T PO
--- NOTE | 2017-06-12 13:36 | Diagnostic Imaging Report ---
PA and lateral views of the chest. INDICATION: Rales in the right lung base. FINDINGS: There is mild left basilar atelectasis. The right lung appears clear. There is pulmonary hyperinflation, however. The heart size is normal. No significant effusion. No pneumothorax. There is a pacemaker with two cardiac leads seen. IMPRESSION: COPD. Mild left basilar atelectasis. Dictated by: Dictated on workstation # [id number]
== END ==
LOC: RAD 11:39
PROVIDERS: ATTEND Internal Medicine
DX: J44.9 Chronic obstructive pulmonary disease, unspecified (principal)
CPT/HCPCS: 71020

== ENCOUNTER → 2018-10-30 | Outpatient (CLI) | payer MEDICARE ==
[~2018-10-30] MED LIST changes: +NAPR-1070 PO; -NAPR550T PO; -OXYC-201 PO; +OXYC1TAB16 PO
--- NOTE | 2018-10-30 18:14 | Diagnostic Imaging Report ---
INDICATION: Cough for three weeks with posterior lower bilateral rib pain. TIME OF EXAM: 12:07 p.m. COMPARISON: Correlation is made with prior chest radiograph from 06/12/2017. FINDINGS: The heart size is normal. Dual-lead left subclavian cardiac pacemaker is in place. There is some discoid atelectasis or scarring in the left base. No displaced rib fracture is seen. No definite effusion or pneumothorax is seen. IMPRESSION: Left basilar subsegmental atelectasis or scarring. No displaced rib fracture is detected. Dictated by: Dictated on workstation # [id number]
== END ==
LOC: RAD 11:41
PROVIDERS: ATTEND Internal Medicine
DX: R07.81 Pleurodynia (principal); R05 Cough; Z95.0 Presence of cardiac pacemaker
CPT/HCPCS: 71110

== ENCOUNTER → 2019-04-29 | Outpatient (CLI) | payer MEDICARE ==
[~2019-04-29] MED LIST changes: +CATHETER FLUSH 10 ML SYR IV PRN; +HOLD METFORMIN - RECEIVED CONTRAST 20 ML VIAL IV SCH; +IOHEXOL 350 MG/ML 100 ML (OMNIPAQUE 350) VIAL IV ONE; +NS 100 ML (IVPB) BAG IV ONE
--- NOTE | 2019-04-29 14:06 | Diagnostic Imaging Report ---
PROCEDURE: CT abdomen and pelvis with contrast. TECHNIQUE: Multiple contiguous axial images were obtained through the abdomen and pelvis after administration of intravenous contrast. Auto Exposure Controls were utilized during the CT exam to meet ALARA standards for radiation dose reduction. INDICATION: Prostate carcinoma with elevated PSA levels. COMPARISON: No prior studies are available for comparison. FINDINGS: There is some increased density in the posterior left lower lobe and lingula consistent with some infiltrate or atelectasis. Right lung base is clear apart from a calcified granuloma in the right lower lobe. No discrete liver mass is identified. The gallbladder is unremarkable. No biliary duct dilatation is seen. Pancreas and spleen are unremarkable. No adrenal mass is identified. Right kidney does contain a 19 mm low-density in the upper pole, most suggestive of a cyst. Aorta is calcified but nonaneurysmal. No central retroperitoneal or mesenteric lymphadenopathy is seen. Small and large bowel loops are normal in caliber. There is diverticulosis of the descending and sigmoid colon but no evidence of acute diverticulitis. The bladder is unremarkable. There are prostatic calcifications present. No inguinal or iliac lymphadenopathy is seen. Imaging through the bony structures demonstrates apparent old ununited fracture of the right inferior pubic ramus as well as the right superior pubic ramus. 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 No definite osseous sclerotic lesions are seen. IMPRESSION: 1. Uncomplicated diverticulosis. 2. 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 3. No evidence of abdominal or pelvic lymphadenopathy or metastatic disease. Dictated by: Dictated on workstation # [id number]
--- NOTE | 2019-04-29 16:12 | Diagnostic Imaging Report ---
INDICATION: Prostate carcinoma. TECHNIQUE: Patient was administered 24.4 mCi technetium 99m MDP intravenously and whole body imaging was performed after three-hour delay. FINDINGS: There is uptake of activity by the axial and appendicular skeleton. There is uptake by the kidneys with excretion into the urinary bladder. There is some mild uptake identified at the left shoulder in the region of the glenohumeral joint. This could be degenerative. There is also mild uptake in the lower thoracic and midlumbar spine which may be degenerative. Mild degenerative uptake in the medial compartment of the right knee is noted. No suspicious focus of tracer accumulation is seen to suggest osseous metastatic disease. IMPRESSION: Degenerative changes. There is no scintigraphic evidence of osseous metastatic disease. Dictated by: Dictated on workstation # [id number]
== END ==
LOC: CARD 12:00
PROVIDERS: ATTEND Urology
DX: C61 Malignant neoplasm of prostate (principal); K57.30 Diverticulosis of large intestine without perforation or abscess without bleeding; S32.511A Fracture of superior rim of right pubis, initial encounter for closed fracture; M17.11 Unilateral primary osteoarthritis, right knee
CPT/HCPCS: 74177; 78306

== ENCOUNTER 2019-05-08 09:37 | Emergency (ER) | payer MEDICARE ==
[~2019-05-08] VITALS: Ht 172 cm; Wt 95.4 kg
[~2019-05-08 09:37] MED LIST changes: -CATHETER FLUSH 10 ML SYR IV PRN; -HOLD METFORMIN - RECEIVED CONTRAST 20 ML VIAL IV SCH; -IOHEXOL 350 MG/ML 100 ML (OMNIPAQUE 350) VIAL IV ONE; -NS 100 ML (IVPB) BAG IV ONE
--- NOTE | 2019-05-08 10:00 | NUR ---
Pt o2 sat 88% on room air. Pt reports he does not typically wear oxygen, hx COPD. Pt placed on o2 at 2L per nasal cannula.
[2019-05-08] MEDS ORDERED: morphine INJ 10 MG/ML 1ML (SYR OR VIAL) IM STA (10:36)
[2019-05-08] MEDS ORDERED: KETOROLAC 30 MG/ML VIAL IM STA (10:36)
--- NOTE | 2019-05-08 10:45 | ED Hip Pain/Injury ---
General Chief Complaint: Hip/Pelvic Problems Stated Complaint: HIP PAIN Nursing Triage Note: Pt to ED via [facility] c/o R leg and hip pain. Pt reports he has arthritis but pain became much worse last night. Pt reports needing to drag leg to ambulate. Pt had bone scane done last week by Dr. Roberts but pt has not received results from test yet. Source: patient Exam Limitations: no limitations (FROYLAN PORRAS MED STUDENT) History of Present Illness Date Seen by Provider: May 08, 2019 Time Seen by Provider: 10:25 Initial Comments The patient is a WD/WN 89 y/o male who is here with a chief complaint of hip pain. He reports that he has chronic hip pain but it has been increased since last night. He describes the pain as sharp and shooting pain that radiates from his right hip to his lower right leg. The pain began to increase yesterday evening and he took a hydrocodone at 8 pm that did not alleviate symptoms. At 4 am he took a tramadol which he said allowed him to relax enough to get some sleep. He is also experiencing some nausea. He admits to loss of sensation in his feet which he states is chronic. He denies any recent changes in sensation. He denies any loss of bowel or bladder, fevers, or recent illnesses. (FROYLAN PORRAS MED STUDENT) Timing/Duration: yesterday, getting worse Severity: moderate Location: hip (R) Method of Injury: unknown Modifying Factors: Improves With Immobilization; Worse With Movement Associated Symptoms: No fever; trouble walking (LAKISHA WEST MD) Allergies and Home Medications Allergies Coded Allergies: Sulfa (Sulfonamide Antibiotics) (Verified Allergy, Unknown, 09/07/16) Home Medications Albuterol/Ipratropium 3 Ml Nebu, 1 INH INH BID, (Reported) MAY TAKE UP TO FOUR TIMES A DAY Amlodipine Besylate 5 Mg Tablet, 5 MG PO DAILY, (Reported) Calcium Carbonate/Mag Oxide/Zn 1 Each Tablet, 1 EACH PO DAILY, (Reported) Calcium Carbonate/Vitamin D3 1 Each Tablet, 1 EACH PO DAILY, (Reported) Cephalexin 500 Mg Tablet, 500 MG PO Q12H, (Reported) Cholecalciferol (Vitamin D3) 2,000 Unit Tablet, 2,000 UNIT PO DAILY, (Reported) Cyanocobalamin 500 Mcg Tablet, 500 MCG PO DAILY, (Reported) Doxazosin Mesylate 4 Mg Tablet, 4 MG PO HS, (Reported) Fluticasone/Salmeterol 1 Each Blst.w.dev, 1 EACH IH BID, (Reported) Lisinopril 5 Mg Tablet, 5 MG PO DAILY, (Reported) Melatonin/Pyridoxine 1 Each Tablet, 5 MG PO HS, (Reported) [place]-3/Dha/Epa/Fish Oil 1,000 Mg Capsule, 1,000 MG PO DAILY, (Reported) Pantoprazole Sodium 40 Mg Tablet.dr, 40 MG PO DAILY Prescribed by: NUSRAT DUGAN on 09/09/16 1211 Vit A/Vit C/Vit E/Zinc/Copper 1 Each Tablet, 1 TAB PO BID, (Reported) Patient Home Medication List Home Medication List Reviewed: Yes (LAKISHA WEST MD) Review of Systems Constitutional: No fever, No malaise Respiratory: No cough, No short of breath Cardiovascular: No chest pain, No palpitations Genitourinary: frequency; No incontinence Musculoskeletal: joint pain, muscle pain (FROYLAN PORRAS STUDENT) Constitutional: see HPI Genitourinary: No pain Musculoskeletal: joint pain, muscle pain Skin: no symptoms reported (LAKISHA WEST MD) Past Wfebtvx-Jfmlhk-Kegosh Hx Past Med/Social Hx: Reviewed Nursing Past Med/Soc Hx (LAKISHA WEST MD) Patient Social History Alcohol Use: Occasionally Uses Number of Drinks Today: II Alcohol Beverage of Choice: Whiskey, Vodka, Other Recreational Drug Use: No Smoking Status: Former Smoker Former Smoker, Quit: Aug 21, 1985 Recent Foreign Travel: No Contact w/Someone Who Travel: No Recent Infectious Disease Expo: No Recent Hopitalizations: No (FROYLAN PORRAS) Immunizations Up To Date Date of Pneumonia Vaccine: Aug 21, 2011 Date of Influenza Vaccine: May 21, 2016 (FROYLAN PORRAS) Seasonal Allergies Seasonal Allergies: No (FROYLAN PORRAS) Past Medical History Surgeries: Yes (RIGHT KNEE SCOPE, BILAT ING HERNIA, umb hernia, RIGHT SHOULDER X2, ) Respiratory: Yes Sleep Apnea, COPD, Emphysema Currently Using CPAP: No Cardiac: Yes Hypertension Neurological: No Reproductive Disorders: No Gastrointestinal: Yes Gastroesophageal Reflux 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 0.5oz. 94.423665me; 32.00 BMI Method:Stated General Appearance: No Apparent Distress, WD/WN HEENT: PERRL/EOMI; No Photophobia Cardiovascular: Regular Rate, Rhythm, No JVD, No Murmur Respiratory: Chest Non Tender, Lungs Clear, Normal Breath Sounds Extremity: Normal Capillary Refill; No Normal Range of Motion Neurologic/Psychiatric: Alert, Oriented x3, No Motor/Sensory Deficits, Normal Mood/Affect Skin: Normal Color, Warm/Dry (FROYLAN PORRAS MED STUDENT) General Appearance: WD/WN, Mild Distress Cardiovascular: Regular Rate, Rhythm, No Murmur Respiratory: Lungs Clear, Normal Breath Sounds Gastrointestinal: Non Tender, Soft Extremity: Other (pain to the area of the right hip socket and painless range of motion. On examination after pain medicine, he had better range of motion and pain was decreased.) Neurologic/Psychiatric: Alert, Oriented x3 (LAKISHA WEST MD) Progress/Results/Core Measures Results/Orders My Orders Orders - LAKISHA WEST MD Pelvis With Right Hip 2-3views (05/08/19 10:34) Ketorolac Injection (Toradol Injection) (05/08/19 10:36) Morphine Injection (Morphine Injection (05/08/19 10:36) O2 (05/08/19 11:20) (LAKISHA WEST MD) Vital Signs/I&O 05/08/19 09:41 Temp 36.6 Pulse 78 Resp 20 B/P (MAP) 146/97 (113) Pulse Ox 90 O2 Delivery Room Air (LAKISHA WEST MD) Blood Pressure Mean: 113 Progress Progress Note : Time: 10:50 Progress Note The patient is resting comfortably in the exam room. Morophine and toradol will be administered for pain. Hip will be examined with plain radiograph of hip and pelvis. (FROYLAN PORRAS MED STUDENT) Progress Note : Progress Note I seen and evaluated the patient and agree with above except as indicated. I have directed the plan of care. Morphine 5 mg IM and Toradol 30 mg IM ordered. X-ray right hip and pelvis ordered. Pain markedly decreased after pain medicine. Pending x-rays. 1236: Pain remains much better. Does appear to be inflammatory process. We will initiate steroid outpatient and patient will be given prescription of hydrocodone. Discharged home with return precautions. Patient verbalize understanding instructions and agreement with plan. I will send a copy of the chart to Dr. La. (LAKISHA WEST MD) Diagnostic Imaging Diagonstic Imaging: Xray Plain Films/CT/US/NM/MRI: pelvis, hip Comments [facility], [place] NAME: REHANA FLYNN [facility] REC#: [id number] PT STATUS: REG ER : 1930 PHYSICIAN: LAKISHA WEST MD ADMIT DATE: 05/08/19/ER Draft Date of Exam:05/08/19 PELVIS WITH RIGHT HIP 2-3VIEWS PATIENT HISTORY: Right hip pain. TECHNIQUE: Frontal view of the pelvis. Frontal and lateral views of the right hip. COMPARISON: CT from 04/29/2019. FINDINGS: There are mild degenerative changes in the bilateral hip joints and moderate degenerative change in the lower lumbar spine. There is deformity of the right superior and inferior pubic rami, which appear to be from old nonunited fractures. No acute fracture is seen. Alignment otherwise appears normal. The bilateral sacroiliac joints are patent. IMPRESSION: 1. Mild degenerative changes in the right hip with no acute osseous abnormalities seen. 2. 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 Dictated on workstation # [id number] Dict: 05/08/19 1158 Trans: 05/08/19 1202 [facility] [id number] Interpreted by: CHANCE ANDERSON MD Electronically signed by: (LAKISHA WEST MD) Departure Impression Primary Impression: Right hip pain Additional Impression: Arthritis of right hip Disposition: 01 HOME, SELF-CARE Condition: Improved Departure-Patient Inst. Decision time for Depature: 12:37 (LAKISHA WEST MD) Referrals: ELIJAH LA MD (PCP/Family) Primary Care Physician Patient Instructions: Hip Pain (DC), Osteoarthritis (DC) Add. Discharge Instructions: All discharge instructions reviewed with patient and/or family. Voiced understanding. Take medications as directed. You may take Tylenol/acetaminophen 1000 mg every 6 hours as needed for pain or you may take the prescribed pain medicine but do not take both at the same time as they both have acetaminophen in them. Follow-up with your doctor this week for recheck and further evaluation. Return for worse pain, weakness, difficulty with going to the bathroom or other concerns as needed. Scripts Prednisone (Prednisone) 20 Mg Tab 40 MG PO DAILY, #8 TAB 0 Refills Prov: LAKISHA WEST MD 05/08/19 Hydrocodone Bit/Acetaminophen (Hydrocodone/Acetaminophen 5/325mg Tablet) 1 Tab Tab 1 EACH PO Q4-6HR PRN for PAIN-MODERATE MDD 10 for 3 Days, #10 TAB 0 Refills Prov: LAKISHA WEST MD 05/08/19 Copy Copies To 1: ELIJAH LA MD, JOSHUA K MED STUDENT May 08, 2019 10:45 LAKISHA WEST MD May 08, 2019 12:02
--- NOTE | 2019-05-08 11:24 | NUR ---
Pt reports pain is better at this time. Pt given warm blanket.
--- NOTE | 2019-05-08 12:03 | Diagnostic Imaging Report ---
PATIENT HISTORY: Right hip pain. TECHNIQUE: Frontal view of the pelvis. Frontal and lateral views of the right hip. COMPARISON: CT from 04/29/2019. FINDINGS: There are mild degenerative changes in the bilateral hip joints and moderate degenerative change in the lower lumbar spine. There is deformity of the right superior and inferior pubic rami, which appear to be from old nonunited fractures. No acute fracture is seen. Alignment otherwise appears normal. The bilateral sacroiliac joints are patent. IMPRESSION: 1. Mild degenerative changes in the right hip with no acute osseous abnormalities seen. 2. 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 Dictated by: Dictated on workstation # [id number]
--- NOTE | 2019-05-08 12:24 | NUR ---
Pt resting in bed. Gave pt coffee per Darrion at this time.
[2019-05-08] MEDS ORDERED: PRD20T PO (12:40)
[2019-05-08] MEDS ORDERED: ACHD5005 PO (12:40)
[2019-05-08 12:45] VITALS: BP 168/92
== END 2019-05-08 12:45 | disposition home or self-care (01) ==
LOC: EDUNIT# 09:37 → ER 09:38
DX: M16.11 Unilateral primary osteoarthritis, right hip (principal); I10 Essential (primary) hypertension; J43.9 Emphysema, unspecified; K21.9 Gastro-esophageal reflux disease without esophagitis; Z85.46 Personal history of malignant neoplasm of prostate; Z88.2 Allergy status to sulfonamides; Z79.51 Long term (current) use of inhaled steroids; Z87.891 Personal history of nicotine dependence
CPT/HCPCS: 96372

== ENCOUNTER → 2020-07-10 | Outpatient (CLI) | payer MEDICARE ==
[~2020-07-10] MED LIST changes: -TRAM50TA2 PO; +TRM50T PO
== END ==
LOC: LABNPT 06:42
PROVIDERS: ATTEND Internal Medicine
DX: J34.89 Other specified disorders of nose and nasal sinuses (principal); Z53.9 Procedure and treatment not carried out, unspecified reason

== ENCOUNTER → 2020-07-15 | Outpatient (CLI) | payer MEDICARE | LOC: LABNPT 08:53 | PROVIDERS: ATTEND Internal Medicine | DX: J34.89 Other specified disorders of nose and nasal sinuses (principal); M79.10 Myalgia, unspecified site; Z20.828 Contact with and (suspected) exposure to other viral communicable diseases | CPT/HCPCS: 87635 ==